=== PATIENT | female | born 1985 | race Caucasian/White ===

== ENCOUNTER 2019-05-11 09:03 | Emergency (ER) | payer OTHER ==
[2019-05-11] MEDS ORDERED: KETOROLAC TROMETHAMINE 60 MG/2 ML SDV IM ONE (10:29)
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
[2019-05-11 11:16] VITALS: BP 126/80
== END 2019-05-11 11:20 | disposition home or self-care (01) ==
LOC: ER 09:03
DX: M25.512 Pain in left shoulder (principal); V54.5XXA Driver of pick-up truck or van injured in collision with heavy transport vehicle or bus in traffic accident, initial encounter
CPT/HCPCS: 99283; 96372; 81025; 73030; J1885